=== PATIENT | male | born 1955 | race Hispanic/Latino ===

== ENCOUNTER 2025-01-01 06:22 | Day surgery (SDC) | payer MEDICARE ==
[2025-01-01] VITALS (11 sets, daily range): BP systolic 116–159; BP diastolic 55–75; PULSE 50–59; RESP 16–18; TEMP 97.1–97.3
[~2025-01-01] VITALS: Ht 177.8 cm; Wt 71.7 kg
[2025-01-01] MEDS: 0.9%NACL 1000ML 1,000 ML IV ONE (07:27)
[2025-01-01] MEDS ORDERED: ROSUVASTATIN 20MG PO (07:29)
[2025-01-01] MEDS ORDERED: HYDR25TA PO (07:29)
[2025-01-01] MEDS ORDERED: LOSA100T59 PO (07:29)
== END 2025-01-01 10:40 | disposition home or self-care (01) ==
LOC: DAH 06:22 → ENDO 06:22
PROVIDERS: ATTEND Internal Medicine
DX: R19.5 Other fecal abnormalities (principal); D12.2 Benign neoplasm of ascending colon; K63.89 Other specified diseases of intestine; K64.8 Other hemorrhoids; K57.30 Diverticulosis of large intestine without perforation or abscess without bleeding; I10 Essential (primary) hypertension; E78.00 Pure hypercholesterolemia, unspecified; E78.9 Disorder of lipoprotein metabolism, unspecified; R01.1 Cardiac murmur, unspecified; Z90.49 Acquired absence of other specified parts of digestive tract; Z98.890 Other specified postprocedural states; Z79.899 Other long term (current) drug therapy
CPT/HCPCS: 45380; J7030 ×2; J2704; A4620; A4215 ×2; A4223; A4657; A7002; A4222; A4221; A4663; A4606; J3490